=== PATIENT | female | born 2000 | race Caucasian/White ===

== ENCOUNTER 2022-01-07 15:43 | Emergency (ER) | payer OTHER, SELFPAY ==
[2022-01-07 15:45] VITALS: BP 132/81; PULSE 84; RESP 15; TEMP 36.4; O2SAT 99; BMI 33.3
[2022-01-07 16:05] LABS: Bacteria 0 SEEN /hpf (None Seen); Mucous, Urine 0 SEEN /hpf (<or=2+); Red Blood Cells-Urine 0 SEEN /hpf (0-5); White Blood Cells 0 SEEN /hpf (0-5)
[2022-01-07 16:10] LABS: Color, Urine Yellow (Yellow); Glucose, Dipstick Normal (Normal); Ketone-Dipstick Negative (Negative); Leukocyte Esterase-Dipstick Negative /ul (Negative); Nitrite-Dipstick Negative (Negative); Occult Blood-Urine Negative /ul (Negative); Protein-Dipstick Negative (Negative); Urine Bilirubin Dipstick Negative (Negative); Urine Clarity Clear (Clear); Urine Urobilinogen Normal (Normal); Urine pH 6.5 (5.0 - 8.0)
--- NOTE | 2022-01-07 16:13 | CT_ITS ---
STUDY: CT ABDOMEN AND PELVIS WITH CONTRAST REASON FOR EXAM: Female, 21 years old. RLQ abdominal pain RADIATION DOSAGE (If Supplied By Facility): CTDIvol = ( 13.67 ) mGy, DLP = ( 920.97 ) mGycm TECHNIQUE: Transaxial images were obtained from the dome of the diaphragm to the symphysis pubis without oral contrast. IV 100mL Isovue-370 was administered. Sagittal and coronal images were reconstructed. Individualized dose optimization techniques were used for this CT. COMPARISON: None. FINDINGS: The visualized lung bases are unremarkable. The visualized portions of the heart are within normal limits. Normal liver. Normal gallbladder and extrahepatic biliary system. Normal spleen. Normal pancreas. Normal bilateral adrenal glands. Normal right kidney. Normal left kidney. Normal visualized stomach. Normal small intestine. Normal colon. The appendix is visualized and appears normal. Normal abdominal aorta. Normal inferior vena cava. Normal retroperitoneum. Normal urinary bladder. Prominent uterus and bilateral adnexa may be physiologic. Normal abdominal wall. Normal osseous structures. CT/Abdomen/Pelvis W IV Cont ONLY IMPRESSION: Normal appendix. Prominent uterus and bilateral adnexa may be physiologic. Electronically Signed: Jesús Belle MD at 17:44 EDT ,
[2022-01-07 16:14] LABS: Internal QC Validated? YES +Cl - CLEAR BKGD; Pregnancy, Urine Negative Negative
[2022-01-07 16:15] LABS: Squamous Epithelial Cells - UA 0-5 SEEN /hpf (5-10)
--- NOTE | 2022-01-07 16:20 | ED.VIS.GI ---
HPI HPI - GI History of Present Illness Chief Complaint: Abd Pain Narrative Narrative: 1-year-old female presenting with right lower quadrant abdominal pain. She states that she has had progressive pain since Wednesday. The pain did not come out of nowhere. She states that it was increasingly worse and on Wednesday she went to [facility] and had lab work and a CT scan done. The lab work was normal. The CT scan was apparently normal. Patient followed up with her primary care physician who told her to come to [facility] for a second opinion. Patient has nausea without vomiting. She denies diarrhea. She states she is had a small amount of bowel movements but denies that they are hard. No urinary or vaginal complaints. No concern for . PFSH PFSH Allergy/AdvReac Type Severity Reaction Status Date / Time acetaminophen [From Hycet] AdvReac Other Verified 01/07/22 15:48 amoxicillin [From Augmentin] AdvReac Upset Verified 01/07/22 15:48 Stomach clavulanic acid AdvReac Upset Verified 01/07/22 15:48 [From Augmentin] Stomach cortisone AdvReac Upset Verified 01/07/22 15:48 Stomach hydrocodone [From Hycet] AdvReac Other Verified 01/07/22 15:48 methylprednisolone AdvReac Upset Verified 01/07/22 15:48 Stomach Sulfa (Sulfonamide AdvReac Upset Verified 01/07/22 15:48 Antibiotics) Stomach Social History Smoking Status: Never smoker ROS ROS ED Constitutional Constitutional ED: Denies chills, fever(s) or subjective ENT ENT ED: Denies rhinorrhea or sore throat Cardiovascular Cardiovascular: Denies chest pain or palpitations Respiratory/Chest Respiratory/Chest: Denies cough or dyspnea Gastrointestinal Gastrointestinal: Reports abdominal pain and nausea; Denies constipation, diarrhea or vomiting Genitourinary Genitourinary ED: Denies dysuria or hematuria Musculoskeletal Musculoskeletal: Denies arthralgias or myalgias Integumentary Denies rash Neurologic Neurologic: Denies headache(s) or weakness Psychiatric Psychiatric: Denies anxiety or depression EXAM Physical Exam Const Vital Signs: 01/07/22 15:45 01/07/22 17:47 Temperature 97.6 F L Temperature Source Temporal Pulse Rate 84 68 Respiratory Rate 15 16 Blood Pressure 132/81 H 136/74 H Blood Pressure Mean 98 94 Pulse Ox 99 98 Oxygen Delivery Method Room Air Room Air Positive well nourished General Appearance ED: NAD; Negative for pallor HEENT Reports moist mucous membranes normocephalic and atraumatic Eyes PERRL and EOMs intact bilaterally Resp normal respiratory effort and clear to auscultation bilaterally Cardio regular rate and regular rhythm GI non-distended Palpation: soft and tender RLQ Back/Spine no CVA tenderness Extremity full ROM Neuro Sensorium / Orientation: alert, oriented to person, oriented to place and oriented to time Psych mental status grossly normal and thought process normal Skin General Skin Exam: Negative for jaundice or pallor Rashes: no rashes MDM MDM MDM Narrative Medical decision making narrative: Patient presenting with right lower quadrant pain. Is been there for 5 days. She describes it is somewhat intermittent and almost improving on Wednesday but then was evaluated Wednesday with a CT of the abdomen pelvis. I was able to review Clinisync. CT of the abdomen pelvis was negative. Blood work was all normal. She has repeat lab work today which is normal. Her CBC and CMP within normal limits. Urinalysis negative for infection. Obtain a CT of the abdomen pelvis which shows no acute intra-abdominal process. Patient counseled on findings. I believe she stable for discharge home at this time. Impression: 1. Abdominal pain 2. Nausea Lab Data Attestation: I reviewed the patient's lab results. Labs: Laboratory Results - last 24 hr 01/07/22 01/07/22 01/07/22 16:00 16:37 16:37 WBC 5.8 RBC 4.51 Hgb 13.2 Hct 38.9 MCV 86.3 MCH 29.3 MCHC 33.9 RDW Std Deviation 41.6 RDW Coeff of Mil 13.2 Plt Count 239 MPV 9.7 Immature Gran % (Auto) 0.200 Neut % (Auto) 60.9 Lymph % (Auto) 23.4 Hanson % (Auto) 12.7 H Eos % (Auto) 1.9 Baso % (Auto) 0.9 Absolute Neuts (auto) 3.5 Absolute Lymphs (auto) 1.35 Nucleated RBC % 0 Sodium 139 Potassium 3.6 Chloride 109 H Carbon Dioxide 27.0 Anion Gap 3 L BUN 8 Creatinine 0.61 Estim Creat Clear Calc 131.27 Est GFR (MDRD) Af Amer 159 Est GFR (MDRD) Non-Af 131 BUN/Creatinine Ratio 13.1 Glucose 99 Calcium 8.9 Total Bilirubin 0.30 AST 13 L ALT 35 Alkaline Phosphatase 73 Total Protein 7.1 Albumin 3.7 Globulin 3.4 Albumin/Globulin Ratio 1.1 Urine Color Yellow Urine Clarity Clear Urine pH 6.5 Ur Specific [place] 1.010 Urine Protein Negative Urine Glucose (UA) Normal Urine Ketones Negative Urine Occult Blood Negative Urine Nitrite Negative Urine Bilirubin Negative Urine Urobilinogen Normal Ur Leukocyte Esterase Negative Urine RBC 0 SEEN Urine WBC 0 SEEN Ur Squamous Epith Cells 0-5 SEEN Urine Bacteria 0 SEEN Urine Mucus 0 SEEN Urine Test Negative Radiography Diagnostic Testing: Clinical Impression(s) from Imaging Studies Abdomen/Pelvis CT 01/07/22 16:13 IMPRESSION: Normal appendix. Prominent uterus and bilateral adnexa may be physiologic. Electronically Signed: Jesús Belle MD at 17:44 EDT , Discharge Plan Triage Chief Complaint: Abd Pain ED Provider: Esvin Sousa Dx/Rx/DC Orders Primary Care Provider: Francisco Javier Woodard
[2022-01-07] MEDS: 0.9% Normal Saline 1,000 ML 1000 ML IV (16:21)
[2022-01-07] MEDS: Morphine 4 MG/ML Syringe IV (16:21)
[2022-01-07] MEDS: Ondansetron 4 MG/2 ML Vial IV (16:21)
[2022-01-07 16:47] LABS: Absolute Lymphocyte Count 1.35 X10^3/uL (0.83-4.51); Absolute Neutrophil Count 3.5 X10^3/uL (2.0-7.7); Basophil# 0.05 X10^3/uL; Basophil% 0.9 % (0-1); Eosinophil# 0.11 X10^3/uL; Eosinophils% 1.9 % (0-5); Hematocrit 38.9 % (37-47); Hemoglobin 13.2 g/dL (12.0-15.0); Lymphocyte # 1.35 X10^3/ul (0.83-4.51); Lymphocyte % 23.4 % (19-41); Mean Corp Hgb Conc 33.9 g/dL (32-36); Mean Corpuscular Hgb 29.3 pg (27.0-32.0); Mean Corpuscular Volume 86.3 fL (81-99); Mean Platelet Vol. 9.7 fl (6.2-12.0); Monocyte# 0.73 X10^3/uL; Monocyte% 12.7 % (0-10); NRBC Flagged by Analyzer 0 % (0-5); Neutrophil # 3.51 X10^3/uL (2.7-7.7); Neutrophil % 60.9 % (47-70); Platelet Count 239 K/mm3 (150-450); RBC Distribution Width CV 13.2 % (11.6-14.6); RBC Distribution Width SD 41.6 fl (35.1-43.9); Red Blood Count 4.51 M/mm3 (4.2-5.4); White Blood Count 5.8 K/mm3 (4.4-11.0)
[2022-01-07 17:07] LABS: ALB/GLOB Ratio 1.1 RATIO (0.9-2.4); AST(SGOT) 13 U/L (15-37); Alanine Aminotransfer ALT/SGPT 35 U/L (13-56); Albumin, Serum 3.7 g/dL (3.2-5.0); Alkaline Phosphatase 73 U/L (45-117); Anion Gap 3 (5-15); BUN 8 mg/dL (7-18); BUN/Creat Ratio 13.1 RATIO (10-20); Calcium,Total 8.9 mg/dL (8.5-10.1); Chloride 109 mmol/L (98-107); Creatinine, Serum 0.61 mg/dL (0.55-1.02); EST Glomerular Filtration Rate 131 mL/min (>60); Est Glom Filt Rate - Afr Amer 159 mL/min (>60); Estimated Creatinine Clearance 131.27 ml/min; Globulin 3.4 g/dL (2.2-4.2); Glucose 99 mg/dL (74-106); Potassium 3.6 mmol/L (3.5-5.1); Protein, Total 7.1 g/dL (6.4-8.2); Sodium Level 139 mmol/L (136-145)
[2022-01-07 17:47] VITALS: BP 136/74; PULSE 68; RESP 16; O2SAT 98
== END 2022-01-07 18:48 | disposition home or self-care (01) ==
PROVIDERS: Emergency Provider Student in an Organized Health Care Education/Training Program; PCP Family Medicine; Visit Provider Student in an Organized Health Care Education/Training Program
DX: R10.31 Right lower quadrant pain (principal); R11.0 Nausea
CPT/HCPCS: 74177; 80053; 81001; 81025; 85025; 96361; 96374; 96375; 99284; J7030; Q9967; A4216; J2405